=== PATIENT | male | born 1970 | race Caucasian/White ===

== ENCOUNTER 2019-12-23 17:56 | Emergency (ER) | payer BC, SELFPAY ==
--- NOTE | ~2019-12-23 | CT_ITS ---
EXAMINATION: CT abdomen pelvis w con INDICATION: Epigastric abdominal pain TECHNIQUE: Computed tomographic images of the abdomen and pelvis were obtained after the administrati on of 100 cc of Omnipaque 350 intravenous contrast. The dose-length product (DLP) was 925.39 mGy-cm. Automated exposure control and iterative reconstruction technique were employed. COMPARISON: None available FINDINGS: A focal opacity of the left lower lobe is likely infectious or inflammatory. The heart size is normal. The liver is diffusely low in attenuation when compared with the spleen, consistent with hepatic steatosis. Punctate calcifications in an otherwise normal spleen likely represent healed gran ulomatous disease. The pancreas is normal in appearance. There is subtle fat stranding near the head of the pancreas. The gallbladder and adrenal glands are normal. The kidneys are unremarkable. No path ologically enlarged abdominal or pelvic lymph nodes are identified. There is no free intraperitoneal gas or evidence of bowel obstruction. The appendix is normal. There is moderate lumbar spondylosis. IMPRESSION: 1. Findings suggestive of early acute pancreatitis. Reviewed, dictated and finalized at location A.
[2019-12-23 17:58] VITALS: BP 149/87; PULSE 97; RESP 98; TEMP 36.8; O2SAT 98
[2019-12-23 18:59] LABS: Basophils Absolute Auto 0.1 K/mm3 (0.0-0.1); Basophils Percent Auto 0.9 % (0.2-1.2); Eosinophils Percent Auto 0.3 % (0-4.4); Hemoglobin 14.1 g/dL (14.0-18.0); Immature Granulocyte Absolute 0.01 K/mm3 (0.00-0.031); Immature Granulocyte Percent A 0.2 % (0-0.5); Lymphocytes Absolute Auto 2.16 K/mm3 (0.9-3.2); Mean Corpuscular HGB Conc 33.6 g/dl (32-36); Mean Corpuscular Hemoglobin 28.7 pg (26-34); Mean Corpuscular Volume 85.4 fl (80-100); Mean Platelet Volume 9.8 fl (7.4-10.4); Monocytes Absolute Auto 0.6 K/mm3 (0.1-0.6); Monocytes Percent Auto 8.7 % (2.6-8.5); Neutrophils Absolute Auto 3.7 K/mm3 (1.3-6.7); Neutrophils Percent Auto 56.9 % (45.5-73.1); Platelet Count Result 234 k/mm3 (150-375); Red Blood Count 4.92 M/mm3 (4.6-6.20); Red Cell Distribution Width 12.4 % (11.5-14.5); White Blood Count 6.6 K/mm3 (4.5-10.0)
--- NOTE | 2019-12-23 19:05 | ED.ABDPAIN ---
HPI - Abdominal Pain General Chief Complaint: Abdominal Pain Stated Complaint: abd pain Time Seen by Provider: 12/23/19 19:03 History of Present Illness HPI narrative: SHarp epigastric pain radiating to his back for the past 5 days. Moderate intensity. Associated with nausea, constipation, and bloating. Made worse by eating. improved slightly with a laxative. These are new symptoms. No fever, vomiting. Related Data Home Medications Medication Instructions Recorded Confirmed cetirizine [Zyrtec] 10 mg PO DAILY 12/23/19 12/23/19 Allergies Allergy/AdvReac Type Severity Reaction Status Date / Time Penicillins Allergy Severe HIVES, RASH Verified 12/23/19 18:58 shellfish derived Allergy Severe THROAT Verified 12/23/19 18:58 SWELLING, HIVES Review of Systems Review of Systems: All systems reviewed & are unremarkable except as noted in HPI and below Constitutional: Constitutional: Denies fever(s) ENT: Denies sore throat Cardiovascular: Cardiovascular: Denies chest pain Respiratory: Respiratory: Denies dyspnea Gastrointestinal: Gastrointestinal: Reports abdominal pain, Reports bloating, Reports constipation, Denies diarrhea, Reports nausea and Denies vomiting Genitourinary: Genitourinary: Denies dysuria Musculoskeletal: Musculoskeletal: Reports back pain Neurologic: Denies dizziness and Denies weakness Endocrine: Endocrine: Denies polydipsia [facility] Social History Social History (Updated 12/23/19 @ 21:55 by Javier Roberto MD) Smoking status: Never smoker Gender identity (if verbalized by the patient): Male Exam Const: General: healthy appearing, no acute distress and alert Orientation/consciousness: patient oriented x3 HENMT: Head: normal to inspection Resp: Effort & Inspection: normal respiratory effort Auscultation: clear to auscultation bilaterally Cardio: Rate: regular rate Rhythm: regular rhythm GI: Inspection: non-distended GI Palp: Yes Soft to palpation, Yes Tenderness to palpation present (GI) (epigastric, mild) and No Guarding due to palpation present (GI) Auscultation: normal bowel sounds Skin: General skin exam: normal color Neuro: General: patient oriented x3 and moves all extremities Speech: normal speech Extrem: General: normal to inspection Psych: Appearance: grossly normal Mental Status: mental status grossly normal Affect: normal affect Attitude: cooperative Thought content: Yes Normal thought content present Course Vital Signs Vital signs: Vital Signs Temperature 36.8 C 05/21/20 17:58 Pulse Rate 97 12/23/19 17:58 Respiratory Rate 98 H 12/23/19 17:58 Blood Pressure 149/87 H 12/23/19 17:58 Pulse Oximetry 98 12/23/19 17:58 Temperature 36.6 C 12/23/19 21:23 Pulse Rate 79 12/23/19 21:23 Respiratory Rate 20 12/23/19 21:23 Blood Pressure 139/89 12/23/19 21:23 Pulse Oximetry 100 12/23/19 21:23 MDM - Abdominal Pain MDM Narrative Medical decision making narrative: Mild/early pancreatitis on CT. Lipase minimally elevated. Discussed admission for hydration and pain control. He said that he would prefer to try treatment at home. I went over diet modifications and return precautions. He was in agreement with the plan. Differential Diagnosis Differential diagnosis: Likely abdominal pain, constipation, pancreatitis and small bowel obstruction Medical Records Attestation: I reviewed the patient's medical records. Lab Data Attestation: I reviewed the patient's lab results. Result diagrams: 12/23/19 18:54 12/23/19 18:54 Labs: Lab Results 12/23/19 12/23/19 12/23/19 Range/Units 18:54 18:54 19:09 WBC 6.6 (4.5-10.0) K/mm3 RBC 4.92 (4.6-6.20) M/mm3 Hgb 14.1 (14.0-18.0) g/dL Hct 42.0 (42.0-52.0) % MCV 85.4 (80-100) fl MCH 28.7 (26-34) pg MCHC 33.6 (32-36) g/dl RDW 12.4 (11.5-14.5) % Plt Count 234 (150-375) k/mm3 MPV 9.8 (7.4-10.4) fl Anushka
[2019-12-23 19:11] LABS: Alanine Aminotransferase 34 U/L (4-50); Albumin Level 4.3 g/dL (3.5-5.1); Alkaline Phosphatase 50 U/L (38-126); Aspartate Amino Transferase 30 U/L (17-59); Bilirubin,Total 1.1 mg/dL (0.2-1.3); Blood Urea Nitrogen 9 mg/dL (9-20); Calcium 9.1 mg/dL (8.4-10.2); Carbon Dioxide 27 mmol/L (22-30); Chloride 102 mmol/L (98-107); Estimated CRCL calculation 104 ml/min; Estimated Glomerular Filt Rate > 60; Glucose 165 mg/dL (75-110); Lipase 465 U/L (23-300); Potassium 3.6 mmol/L (3.4-5.0); Sodium 136 mmol/L (137-145)
[2019-12-23 19:16] LABS: Add Urine Microscopic? NO; Appearance Urine Clear (Clear); Bilirubin Urine Negative (Negative); Blood Urine Negative (Negative); Color Urine Yellow (Yellow); Glucose Urine UA Negative (Negative); Ketones Urine Negative (Negative); Leukocyte Esterase Ur Negative LEU/UL (Negative); Nitrate Urine Negative (Negative); Protein Urine Negative (Negative); Specific Grav Ur 1.017 (1.001-1.035); Urobilinogen Urine Negative mg/dL (<2.0)
[2019-12-23] MEDS: METOCLOPRAMIDE HCL INJ 10 MG/2 ML VIAL IV PUSH (19:26)
[2019-12-23 20:30] VITALS: BP 137/75; PULSE 87; RESP 19; TEMP 36.8; O2SAT 100
[2019-12-23] MEDS: MORPHINE SULFATE 2 MG/ML INJ IV PUSH (20:33)
[2019-12-23 21:23] VITALS: BP 139/89; PULSE 79; RESP 20; TEMP 36.6; O2SAT 100
== END 2019-12-23 21:24 | disposition home or self-care (01) ==
PROVIDERS: General Practice; Emergency Provider Emergency Medicine; PCP Family Medicine Adolescent Medicine
DX: K85.90 Acute pancreatitis without necrosis or infection, unspecified (principal)
CPT/HCPCS: 36415; 74177; 80053; 81003; 83690; 85025; 96374; 96375; 99284; J2270; J2765; Q9967

== ENCOUNTER 2020-01-11 08:38 | Outpatient (CLI) | payer BC, SELFPAY ==
--- NOTE | ~2020-01-11 | US_ITS ---
US abdomen complete EXAMINATION: US Abdomen Complete INDICATION: Pancreatitis. Evaluate for cholecystitis. PROCEDURE: Realtime High Resolution abdomen ultrasound. COMPARISON: CT dated 12/23/2019 FINDINGS: Gallbladder within normal limits. No gallstones, pericholecystic fluid, gallbladder wall t hickening or biliary dilatation. Common bile duct measures 4 mm. Liver echotexture is increased, consistent with fatty infiltration.. Pancreas within normal limits. Pancreatic tail is obscured by bowel gas. Spleen contains calcified granulomas. Spleen measures 10. 6 cm.. Renal echotexture is within normal limits bilaterally without hydronephrosis, contour deformin g mass or renal stone. Right kidney measures 11.2 cm. Left kidney measures 12.4 cm. Visualized aspects of the aorta and IVC are within normal limits. Portal vein is patent. No sonograph ic Shea's sign indicated by the technologist. IMPRESSION: 1: Fatty infiltration of the liver. Reviewed, dictated and finalized at location A.
== END 2020-01-11 08:39 | disposition home or self-care (01) ==
LOC: ANHIMG 08:40
PROVIDERS: PCP Family Medicine Adolescent Medicine; Visit Provider Family Medicine Adolescent Medicine
DX: K76.0 Fatty (change of) liver, not elsewhere classified (principal)
CPT/HCPCS: 76700

== ENCOUNTER 2023-05-26 12:20 | Outpatient (CLI) | payer OTHER, SELFPAY ==
--- NOTE | ~2023-05-26 | XR_ITS ---
Lumbosacral Spine: AP and lateral views Clinical History: Pain, polyneuropathy Findings: The normal lordotic curve is maintained. The vertebral bodies and posterior elements are i ntact. There is mild degenerative disc narrowing at L4-L5 and L5-S1. The sacroiliac joints are jessy lly outlined. Impression: Mild degenerative disc narrowing at the lower lumbar spine, as detailed above. Reviewed, dictated and finalized at location M. Impression: Mild degenerative disc narrowing at the lower lumbar spine, as detailed above.
== END 2023-05-26 12:21 | disposition home or self-care (01) ==
PROVIDERS: PCP Family Medicine Adolescent Medicine; Visit Provider Nurse Practitioner Family
DX: G62.9 Polyneuropathy, unspecified (principal)
CPT/HCPCS: 72100

== ENCOUNTER 2023-07-16 08:51 | Outpatient (CLI) | payer OTHER, SELFPAY ==
--- NOTE | 2023-07-16 11:30 | NEURO_ITS ---
Impression: # Non-diabetic coming back from [place] developed numbness of bottom of feet. # Right peroneal responses above the ankle are polyphasic suggestive of old insult. # Otherwise Nerve conduction study is normal. # Normal needle/EMG without neurogenic changes. Nerve Conduction Studies Anti Sensory Summary Table Stim Site NR Peak (ms) P-T Amp (?V) Site1 Site2 Delta-P (ms) Dist (cm) Berny (m/s) Left Saphenous Anti Sensory (Ant Med Mall) 14cm 3.7 4.4 14cm Ant Med Mall 3.7 0.0 Right Saphenous Anti Sensory (Ant Med Mall) 14cm 3.5 7.4 14cm Ant Med Mall 3.5 0.0 Left Sup Fibular Anti Sensory (Ant Lat Mall) 14 cm 3.3 11.2 14 cm Ant Lat Mall 3.3 16.0 48 Right Sup Fibular Anti Sensory (Ant Lat Mall) 14 cm 3.2 12.1 14 cm Ant Lat Mall 3.2 16.0 50 Left Sural Anti Sensory (Lat Mall) Calf 3.6 25.0 Calf Lat Mall 3.6 16.0 44 Right Sural Anti Sensory (Lat Mall) Calf 3.8 13.7 Calf Lat Mall 3.8 16.0 42 Motor Summary Table Stim Site NR Onset (ms) O-P Amp (mV) Site1 Site2 Delta-0 (ms) Dist (cm) Berny (m/s) Left Lateral Plantar Motor (ADM) Med Mall 4.6 4.8 Right Lateral Plantar Motor (ADM) Med Mall 4.1 2.8 Left Peroneal Motor (Vastus Med) Ankle 4.6 2.5 Popit Ankle 8.4 42.0 50 Popit 13.0 2.0 Right Peroneal Motor (Vastus Med) Ankle 4.5 0.8 Popit Ankle 7.9 40.0 51 Popit 12.4 0.7 Left Tibial Motor (Abd Cheung Brev) Ankle 4.4 4.4 Knee Ankle 9.2 40.0 43 Knee 13.6 2.5 Right Tibial Motor (Abd Cheung Brev) Ankle 4.2 5.5 Knee Ankle 8.4 40.0 48 Knee 12.6 3.5 F Wave Studies NR F-Lat (ms) L-R F-Lat (ms) Left Peroneal (Mrkrs) (EDB) 53.79 0.59 Right Peroneal (Mrkrs) (EDB) 54.39 0.59 Left Tibial (Mrkrs) (Abd Hallucis) 54.22 1.06 Right Tibial (Mrkrs) (Abd Hallucis) 53.16 1.06 EMG Side Muscle Nerve Root Ins Act Fibs Amp Dur Recrt Comment Right AntTibialis Dp Br Fibular L4-5 Nml Nml Nml Nml Nml Right Gastroc Tibial S1-2 Nml Nml Nml Nml Nml Right Fibularis Long Sup Br Fibular L5-S1 Nml Nml Nml Nml Nml Right Flex Dig Long Tibial L5-S2 Nml Nml Nml Nml Nml Right Ext Dig Brev Dp Br Fibular L5, S1 Nml Nml Nml Nml Nml Left AntTibialis Dp Br Fibular L4-5 Nml Nml Nml Nml Nml Left Gastroc Tibial S1-2 Nml Nml Nml Nml Nml Left Fibularis Long Sup Br Fibular L5-S1 Nml Nml Nml Nml Nml Left Flex Dig Long Tibial L5-S2 Nml Nml Nml Nml Nml Left Ext Dig Brev Dp Br Fibular L5, S1 Nml Nml Nml Nml Nml Right QuadratusFem QuadFemoris L4-5, S1 Nml Nml Nml Nml Nml Left QuadratusFem QuadFemoris L4-5, S1 Nml Nml Nml Nml Nml MTDD
== END 2023-07-16 08:52 | disposition home or self-care (01) ==
LOC: ANHNEURO 08:51
PROVIDERS: PCP Family Medicine Adolescent Medicine; Visit Provider Nurse Practitioner Family
DX: R20.2 Paresthesia of skin (principal)
CPT/HCPCS: 95886; 95912

== ENCOUNTER 2023-09-12 00:25 | Day surgery (SDC) | payer OTHER, SELFPAY ==
[2023-08-19 09:50] VITALS: BMI 35.9
--- NOTE | 2023-09-10 11:32 | SUR.PREOP ---
Patient called regarding upcoming procedure. Reviewed preop instructions, appointment times, and procedure prep.
[2023-09-12 06:49] VITALS: BP 144/88; PULSE 76; RESP 20; TEMP 35.3; O2SAT 97; BMI 35.1
[2023-09-12] MEDS: LACTATED RINGERS 1,000 ML 150 ML IV CONT (07:00)
--- NOTE | 2023-09-12 07:38 | P.PNAN_ITS ---
Anes - Initial Pre Proc Eval Procedure: Operation Date: 09/12/23 08:00 Proposed Procedures p Screening Colonoscopy - Kg Colon MD Date/Time: 09/12/23 07:38 Surgeon: Kg Colon MD Pre Op Diagnosis: neoplasm screening Patient Data Age: 52 Gender: M Height: 1.73 m Weight: 104.7 kg Last Vital Signs Temp 95.6 F L 09/12/23 06:49 Pulse 76 09/12/23 06:49 Resp 20 09/12/23 06:49 BP 144/88 H 09/12/23 06:49 Pulse Ox 97 09/12/23 06:49 O2 Del Method Room Air 09/12/23 06:49 Allergies Allergy/AdvReac Type Severity Reaction Status Date / Time Penicillins Allergy Severe HIVES, RASH Verified 09/12/23 06:49 shellfish derived Allergy Severe THROAT Verified 09/12/23 06:49 SWELLING, HIVES clindamycin Allergy Mild Nausea and Verified 08/19/23 09:51 Vomiting Home Medications Medication Instructions Recorded Confirmed Type cetirizine 10 mg capsule (Zyrtec) 10 mg PO DAILY 12/23/19 09/12/23 History Patient hx anesthesia problems: none Family hx anesthesia problems: none Results Review: All pre-operative results and documents have been reviewed as part of the pre- operative evaluation. [facility] Past Medical History Medical History History of fracture of left ankle Surgical History Surgical History Hx of right knee surgery Family History Family History Mother Diabetes mellitus Hypertension Hodgkin disease Grandparent Bone cancer Social History Social History Smoking status: Never smoker Tobacco type: smokeless tobacco Smokeless tobacco user: chewing tobacco Second hand tobacco smoke exposure: No Alcohol intake: current Drinks per week: 6 Substance use: current Substance use type: marijuana Last use: Daily Lack of Transportation: No Lack of Food: Never True Current Housing: I Have Housing Concerned About Future Housing: No Difficulty Paying Gas/Electric Bills: No Difficulty Paying for Meds: No Currently Unemployed: No Education: Master's Degree or Higher Difficulty w/ Childcare or Family Care: No Living arrangements: with family Occupation/Education: occupation Gender identity (if verbalized by the patient): Male Spiritual care concerns: No Anes - Eval Final PreProcedure Day of Procedure 09/12/23 07:38 Patient weight: normal Heart: regular rate and rhythm Lungs: clear to auscultation Airway: Mallampati scale class II Neurological: alert and oriented Last oral intake: >/= 8 hours ASA classification: II Emergent: no Anesthetic plan: proceed Anesthesia type and monitoring: general GIVS and standard monitoring Results Review: All pre-operative results and documents have been reviewed as part of the pre- operative evaluation. Informed Consent: The patient's anesthetic plan and its attendant risks and benefits were discussed with the patient/family/POA. Questions were solicited and answers provided to the satisfaction of the patient/family/POA.
--- NOTE | 2023-09-12 07:46 | PM.HPGS ---
History of Present Illness History of Present Illness Consent: Risks, benefits, and alternatives have been discussed and questions answered. Patient agrees to proceed with procedure. Chief complaint: neoplasm screening Narrative: Raza Farmer is a 52 year old male here for first screening colonoscoy Review of Systems Constitutional: Constitutional: Denies headache(s) and Denies weakness Eyes: Eyes: Denies blurry vision ENT: Reports Normal hearing present, Denies headache(s) and Denies neck pain Cardiovascular: Cardiovascular: Denies chest pain and Denies dyspnea Respiratory: Respiratory: Denies dyspnea Gastrointestinal: Gastrointestinal: Reports no additional gastrointestinal complaints Genitourinary: Genitourinary: Denies dysuria Musculoskeletal: Musculoskeletal: Denies neck pain Integumentary/Breasts: Skin/Breast: Denies dry skin Neurologic: Reports Normal hearing present, Denies headache(s) and Denies weakness Psychiatric: Psychiatric: Denies anxiety Endocrine: Endocrine: Denies change in body appearance Hematologic/Lymphatic: Hematologic/Lymphatic: Denies easy bleeding Allergic/Immunologic: Allergic/Immunologic: Denies urticaria PMFSH Past Medical History Medical History History of fracture of left ankle Surgical History Surgical History Hx of right knee surgery Family History Family History Mother Diabetes mellitus Hypertension Hodgkin disease Grandparent Bone cancer Social History Social History Smoking status: Never smoker Tobacco type: smokeless tobacco Smokeless tobacco user: chewing tobacco Second hand tobacco smoke exposure: No Alcohol intake: current Drinks per week: 6 Substance use: current Substance use type: marijuana Last use: Daily Lack of Transportation: No Lack of Food: Never True Current Housing: I Have Housing Concerned About Future Housing: No Difficulty Paying Gas/Electric Bills: No Difficulty Paying for Meds: No Currently Unemployed: No Education: Master's Degree or Higher Difficulty w/ Childcare or Family Care: No Living arrangements: with family Occupation/Education: occupation Gender identity (if verbalized by the patient): Male Spiritual care concerns: No Meds Home Medications and Allergies Home Medications Medication Instructions Recorded Confirmed Type cetirizine 10 mg capsule (Zyrtec) 10 mg PO DAILY 12/23/19 09/12/23 History Allergies Allergy/AdvReac Type Severity Reaction Status Date / Time Penicillins Allergy Severe HIVES, RASH Verified 09/12/23 06:49 shellfish derived Allergy Severe THROAT Verified 09/12/23 06:49 SWELLING, HIVES clindamycin Allergy Mild Nausea and Verified 08/19/23 09:51 Vomiting Vital Signs Vital Signs - 24 hr 09/12/23 06:49 Temperature 95.6 F L Pulse Rate 76 Respiratory Rate 20 Blood Pressure 144/88 H Pulse Oximetry 97 Oxygen Delivery Room Air Exam Const: General: comfortable and no acute distress HENMT: Face/Nose/Sinus: Normal nares present Eyes: General: appearance normal, both eyes and all related structures Neck: Neck: no JVD Resp: Auscultation: clear to auscultation bilaterally Cardio: Rate: regular rate Rhythm: regular rhythm GI: Inspection: non-distended GI Palp: Yes Soft to palpation Skin: General skin exam: normal color Neuro: General: gait normal Speech: normal speech Extrem: General: normal to inspection Psych: Mental Status: mental status grossly normal Assessment and Plan Assessment and plan (1) Colon cancer screening: Code(s): Z12.11 - Encounter for screening for malignant neoplasm of colon Status: Acute Assessment and Plan: colonoscopy
[2023-09-12 08:05] VITALS: BP 131/22; PULSE 73; RESP 22; O2SAT 98
[2023-09-12 08:15] VITALS: BP 132/88; PULSE 64; RESP 26; O2SAT 100
[2023-09-12 08:25] VITALS: BP 146/96; PULSE 63; RESP 21; O2SAT 100
== END 2023-09-12 08:30 | disposition home or self-care (01) ==
PROVIDERS: PCP Family Medicine Adolescent Medicine; Referring Provider Nurse Practitioner Family; Visit Provider Internal Medicine Gastroenterology
PROC: 0DJD8ZZ Inspection of Lower Intestinal Tract, Via Natural or Artificial Opening Endoscopic (ICD-10-PCS; CPT 45378; principal; 2023-09-12 08:00)
DX: Z12.11 Encounter for screening for malignant neoplasm of colon (principal); F17.220 Nicotine dependence, chewing tobacco, uncomplicated; F12.90 Cannabis use, unspecified, uncomplicated
CPT/HCPCS: 45378; J2704; J7120

== ENCOUNTER 2024-08-09 14:13 | Outpatient (CLI) | payer OTHER, SELFPAY ==
--- NOTE | ~2024-08-09 | MR_ITS ---
EXAMINATION: MR lumbar spine wo con DATE: 08/09/2024 14:50 INDICATION: Radiculopathy, lumbar region. TECHNIQUE: Magnetic resonance imaging (MRI) of the lumbar spine was performed without intravenous con trast. Sequences included sagittal T2-weighted FSE, sagittal T2-weighted FS FSE, sagittal T1-weighted FSE, and axial T2-weighted FSE. COMPARISON: Lumbar spine radiographs 05/26/2023 FINDINGS: There is 6 degrees levocurvature of lumbar spine. There is mild chronic anterior wedging of T12 and L1 vertebral bodies. There is mildly decreased disc height at L2-L3, moderately decreased di sc height at L4-L5, and severely decreased disc height at L5-S1. Epidural lipomatosis is noted. The d istal spinal cord signal intensity is normal. The conus medullaris is at T12. The following disc leve ls are specifically discussed: L1-L2: The disc is mildly bulging. There is severe bilateral facet joint osteoarthritis. There is mil d bilateral neural foraminal stenosis. There is mild central canal stenosis. L2-L3: The disc is bulging and has an annular fissure. There is moderate bilateral facet joint osteoa rthritis. There is mild bilateral neural foraminal stenosis. There is mild central canal stenosis. L3-L4: The disc is bulging. There is mild bilateral facet joint osteoarthritis. There is mild bilater al neural foraminal stenosis. There is mild central canal stenosis. L4-L5: The disc is bulging with superimposed central extrusion. There is severe right and moderate le ft facet joint osteoarthritis. There is mild bilateral neural foraminal stenosis. There is mild centr al canal stenosis. L5-S1: The disc is bulging and has an annular fissure. There is mild right and severe left facet join t osteoarthritis. There is mild right and moderate left neural foraminal stenosis. There is mild cent ral canal stenosis. IMPRESSION: 1. Severe lower lumbar spondylosis. Reviewed, dictated and finalized at location A. Y SITTER
== END 2024-08-09 14:14 | disposition home or self-care (01) ==
PROVIDERS: PCP Family Medicine Adolescent Medicine; Visit Provider Psychiatry & Neurology Neurology
DX: M47.816 Spondylosis without myelopathy or radiculopathy, lumbar region (principal); G89.29 Other chronic pain; R25.1 Tremor, unspecified; R76.8 Other specified abnormal immunological findings in serum; R73.01 Impaired fasting glucose; G62.9 Polyneuropathy, unspecified
CPT/HCPCS: 72148